=== PATIENT | male | born 1950 | race Caucasian/White ===

== ENCOUNTER 2016-06-20 05:49 | Day surgery (SDC) | payer MEDICARE, OTHER ==
[~2016-06-20] VITALS: Ht 182.9 cm; Wt 74.1 kg
[2016-06-20] VITALS (9 sets, daily range): BP systolic 127–161; BP diastolic 70–85; PULSE 57–81; RESP 12–21; O2SAT 97–99
[~2016-06-20 05:49] MED LIST: CALC-952 PO; CHOL5000 PO; CYAN50008 PO; CeFAZolin 2 Gm/50 mL D5W IV Premix IV SCH; FISH12002 PO; GLUC-180 PO; MULT-1018 PO; SAW/1TAB2 PO; TURMERIC ROOT; VITA400C66 PO; ZINC PLUS; biotin; ginkgo biloba; probiotic
[2016-06-20] MEDS ORDERED: Propofol 10,000 mCg/mL 20 mL Inj ONE (05:50)
[2016-06-20] MEDS ORDERED: MetoCLOpramide 5 mg/mL 2 mL Inj ONE (05:50)
[2016-06-20] MEDS ORDERED: Ondansetron 2 mg/mL 2 mL Inj ONE (05:50)
[2016-06-20] MEDS ORDERED: Dexamethasone 4 mg/mL Inj ONE (05:50)
[2016-06-20] MEDS: Lactated Ringer's 1,000 ML IV SCH ×2 (05:57→07:27)
[2016-06-20] MEDS ORDERED: CeFAZolin Inj 2 gm / 50mL D5W IV ONE (06:01)
--- NOTE | 2016-06-20 07:17 | PCM.HPANE ---
Patient Data Surgeon Admitting Provider: Attending Provider:Warren Miller MD Primary Care Physician:Aguila Pickering MD Other Provider:Cristal Campuzano Anesthesia Reason for Visit Right Inguinal Hernia Ht/WT & BMI Height (Feet): 6 Height (Inches): 0.00 Weight (Kilograms): 74.1 Body Mass Index 22.00 Allergies Coded Allergies: codeine (Verified Allergy, Unknown, gi symptoms, 06/16/16) Past Anesthesia History Anesthesia History: Denies:: Abnormal Airway, Anesthesia Reactions, Difficult Intubation, Fam Anesthesia Reaction Diabetes History Hx Diabetes?: No Current Bedside Blood Glucose: 93 MRSA MRSA: No Medications Hypertension Medication: No Home Meds Incl Beta Hannah: No Reported Medications Vitamin E Acetate (Vitamin E)400 Unit [id number] Unit PO DAILY 06/16/16 Cholecalciferol (Vitamin D3) (Vitamin D3)5,000 Unit Capsule5,000 Unit PO DAILY 06/16/16 Cyanocobalamin (Vitamin B-12) (Vitamin B12)5,000 Mcg Tab.rapdis5,000 Mcg PO DAILY 06/16/16 [turmeric root] No Conflict CheckUnknown Dose DAILY 06/16/16 [ginkgo biloba] No Conflict CheckUnknown Dose DAILY 06/16/16 Saw/Vit E/Sod Paty/Lyc/Beta/Pyg (Prostate Health Caplet)1 Each Tablet1 Each PO DAILY 06/16/16 Fish Oil/Borage/Flax/Om3,6,9#1 ([place] 3-6-9 1,200 mg Softgel)1,200 Mg Capsule1, 200 Mg PO DAILY 06/16/16 Multivitamin (Multi Vitamin Daily)1 Each Tablet1 Each PO DAILY 30 Days Ref 0 06/16/16 Glucosamine/MSM/Chondroitin A (Glucosamine Chondroit MSM Tab)1 Each Tablet1 Each PO DAILY 06/16/16 Calcium Carbonate/Vitamin D3 (Calcium 500 mg Chewable Tablet)1 Each Tab.chew1 Each PO DAILY 06/16/16 [biotin] No Conflict Check5,000 Mcg DAILY 06/16/16 Discontinued Reported Medications [zinc plus] No Conflict CheckUnknown Dose DAILY 06/16/16 [probiotic] No Conflict CheckUnknown Dose DAILY 06/16/16 History HEENT History: Denies:: Abnormal Airway Cataracts Difficult Intubation Dysphagia Glaucoma Hearing Problem Sinus Problem TMJ Hx of Heart Problems?: Yes Cardiovascular History: Positive for:: Irregular Heartbeat (Inc RBBB/occ palpitations EKG unchanged 2003) Denies:: AICD Chest Pain Congestive Heart Failure Coronary Artery Disease Edema Heart Murmur Hypertension Pacemaker Peripheral Vascular Rheumatic Fever Thrombophlebitis Valvular Heart Disease Other Cardiac History: 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, could not capture arrythmia at times of visit Hx of Respiratory Problem?: No Respiratory History: Denies:: Asthma COPD Emphysema Oxygen Administration Pneumonia (as child) Tuberculosis Use of C-PAP Machine Use of Inhalers / NEBS Neurological History: Denies:: Alzheimer's Disease CVA Dementia Dizziness Headaches Multiple Sclerosis Parkinson's Disease Seizures TIA Hx of GI Problems?: Yes Gastrointestinal History: Denies:: Cirrhosis Diverticulitis Gall Bladder Disease Gastroesphageal Reflux Gastrointestinal Bleeding Heartburn Hepatitis Hiatal Hernia Liver Disease Other GI Pertinent History: right inguinal hernia current admission problem Hx of Problems?: No Genitourinary History: Denies:: Kidney Stones Urinary Tract Infection Male Hx: Positive for:: Testicular Surgery (hx of vas, and vasosostomy) Denies:: Prostate Problems Scrotal Mass Skin History: Denies:: History Skin Disorders? Pressure Ulcers Hx Musculoskeletal Problems?: Yes Musculoskeletal History: Positive for:: Back Injury (sees chiropractor regularly) Osteoarthritis (right hand) Denies:: Fibromyalgia Joint Replacement Musculoskeletal Trauma Myasthenia Gravis Rheumatoid Arthritis Systemic Lupus Hx of Psycho/Social Problems?: No Psycho Social History: Denies:: Anxiety Hx Depression Hx Surgeries?: Yes (vas, vasosostomy) Hx Any Other Health Problems?: Yes Other History: Positive for:: Cancer (SCC left cheek) Denies:: Thyroid Disease History Blood Transfusions: Positive for:: Accept Blood Products? Denies:: Blood Transfusions Hx Diabetes: NoBedside Blood Glucose: 93 Hx Alcohol Use: YesAlcoholic Drinks Per Day: 1-2 drinks weekHx Substance Use: NoHave You Smoked inLast 12 mo: No Stop/Bang Treated for Sleep Apnea?: No Do You Have a CPAP Machine?: No P-Blood Pressure: treated: No B- Body Mass Index > 35 kg/m2: No A- Age over 50: Yes N- Neck Large Circumference: No G- Gender Male: Yes SHARI Risk Assessment: Low Risk, <3 Yes Risk Assessment Category Category 1A: Patient has history of documented sleep apnea, and HAS NOT received any narcotic, sedative or anesthesia administration during this stay. Category 1B: Patient has history of documented sleep apnea, and HAS received any narcotic , sedative or anesthesia administration during this stay Category 2: Patient has SUSPECTED Obstructive Sleep Apnea, and HAS received any narcotic , sedative or anesthesia administration during this stay. Category 3: Patient has SUSPECTED Obstructive Sleep Apnea and HAS NOT received narcotic, sedative or anesthesia administration during this stay. Category 4: Outpatient in Procedural Areas with known sleep apnea or who screen positive for High Risk via the STOP/BANG questionnaire. Exam Exam Vital Signs Vital Signs Date Time Temp Pulse Resp B/P Pulse Ox O2 Delivery O2 Flow Rate FiO2 06/20/16 06:34 36.4 66 18 127/74 97 Room Air General Appearance: Oriented X3 HEENT/AIRWAY: MP 2 Lungs: Normal Air Movement Heart: Regular Rate/Rhythm Meds/Labs/Diagnostics Admission Meds Current Medications Lactated Ringer's (Lr) 1,000 ml @ 120 mls/hr Q8H20M IV Last administered on t 05:57; Start 06/20/16 at 05:00; Stop 06/20/16 at 13:19 Bedside Blood Glucose: 93 Plan Impression Patient chart reviewed, patient interviewed and anesthestic plan with risks, benefits, and alternatives discussed, and informed consent obtained. NPO Status: 730PM ASA Physical Status: ASA2 Mod Systemic Disease Anesthetic Plan: GA Bene/Risks/Altern/Consents: Yes HP Complete Prior to Induction: Yes Freddie Kidd MD Jun 20, 2016 07:17
[2016-06-20] MEDS ORDERED: Lactated Ringer's 500 ML IV PRN (07:43)
[2016-06-20] MEDS ORDERED: Lactated Ringer's 1,000 ML IV SCH (07:43)
[2016-06-20] MEDS ORDERED: Phenylephrine 10,000 mCg/mL Inj IVPUSH PRN (07:45)
[2016-06-20] MEDS ORDERED: fentaNYL-PF 50 mCg/mL 2 mL Inj IVPUSH PRN (07:45)
[2016-06-20] MEDS ORDERED: HYDROmorphone 1 mg/mL Inj IVPUSH PRN (07:45)
[2016-06-20] MEDS ORDERED: Ondansetron 2 mg/mL 2 mL Inj IVPUSH PRN (07:45)
[2016-06-20] MEDS ORDERED: Dexamethasone 4 mg/mL Inj IVPUSH PRN (07:45)
[2016-06-20] MEDS ORDERED: EPHEDrine Sulfate 50 mg/mL Inj IVPUSH PRN (07:45)
[2016-06-20] MEDS ORDERED: MetoCLOpramide 5 mg/mL 2 mL Inj IVPUSH PRN (07:45)
[2016-06-20] MEDS ORDERED: Labetalol 5 mg/mL 4 mL Inj IV PRN (07:45)
[2016-06-20] MEDS ORDERED: Bupivacaine-MPF 0.5% 30 mL Inj INJ ONE (07:51)
[2016-06-20] MEDS ORDERED: oxyCODONE-Acetamin 5-325 mg Tablet PO PRN (08:30)
--- NOTE | 2016-06-20 08:57 | OP ---
[address] [address] OPERATIVE REPORT PATIENT: BELKIS SEVERINO : 1950 MR#: [id number] ADMIT: 06/20/2016 JOB ID: [id number] DATE OF SURGERY: 06/20/2016 PREOPERATIVE DIAGNOSIS(ES): Symptomatic right inguinal hernia. POSTOPERATIVE DIAGNOSIS(ES): Symptomatic indirect right inguinal hernia. OPERATION: Repair of symptomatic indirect right inguinal hernia with Kugel patch. SURGEON: Warren Miller MD [facility] MANAGER: Richard Armenta PA-C INDICATIONS: A 65-year-old man who has a symptomatic right inguinal hernia, and after discussing options with the patient, it was elected to proceed with repair. FINDINGS: He had an indirect right inguinal hernia. No evidence of a direct or femoral hernia. DESCRIPTION OF PROCEDURE: At the beginning and end of the operation, SCOAP checklist was completed. An LMA anesthetic was induced. Using ChloraPrep, he was prepped and draped in usual fashion. He received local anesthesia with 0.5% plain bupivacaine. A right inguinal incision was designed and incised. The superficial epigastric vein was ligated with 3-0 chromic. The external oblique was exposed and opened in the direction of its fibers. The internal oblique was opened in the direction of its fibers, as was the transversus abdominis. The transversalis fascia was opened vertically. The peritoneum was identified and reflected posteriorly. The deep epigastric artery and vein were identified and reflected anteriorly. The cord structures were identified, and the indirect sac was dissected off of the cord using blunt dissection and cautery. It was dissected well beyond the separation of the vas deferens from the gonadal vessels. The preperitoneal space was then bluntly developed and a small Kugel patch was positioned in it. It was secured to the transversus abdominis with interrupted 2-0 PDS. The internal oblique was closed with running 2-0 PDS. The external oblique and Troy's fascia with running 3-0 Vicryl. The ilioinguinal nerve was identified and sharply divided as it exited the internal oblique. The skin was closed subcuticular 4-0 Vicryl. Steri-Strips and sterile dressings were applied. The estimated blood loss was less than 10 cc. There are no apparent complications. The final sponge, needle, and instrument counts were announced as correct, and he was returned to the recovery room in stable condition. Critical assistance was provided by Richard Armenta PA-C.
--- NOTE | 2016-06-20 09:17 | PCM.ANEP1 ---
Post Anesthesia Phase 1 PACU Phase 1 Assessment Vital Signs Vital Signs Date Time Temp Pulse Resp B/P Pulse Ox O2 Delivery O2 Flow Rate FiO2 06/20/16 09:07 71 12 143/75 99 Room Air 06/20/16 09:01 36.4 71 14 142/70 99 Room Air 06/20/16 08:55 36.8 80 20 161/85 98 Room Air 06/20/16 08:50 81 21 153/82 97 Room Air 06/20/16 08:45 66 15 157/79 99 Simple Mask 8 06/20/16 08:40 57 12 159/77 99 Simple Mask 8 06/20/16 08:37 36.7 59 12 158/81 99 Simple Mask 8 06/20/16 06:34 36.4 66 18 127/74 97 Room Air Anesthetic Administered: GA Level of Alertness: Awake, talking Pain: No Nausea or Vomiting: No Oxygen Delivery: Room Air Lungs: Normal Air Movement Freddie Kidd MD Jun 20, 2016 09:17
--- NOTE | 2016-06-20 09:18 | PCM.ANEP2 ---
Post Anesthesia Evaluation ASA/CMS Post Anesthesia VS in Patient's Normal Range?: Yes Resp Stable; Airway Patent?: Yes CV Function & Hydration Stable: Yes Mental Status Recovered?: Yes Pain control Satisfactory?: Yes N/V Control Satisfactory?: Yes Freddie Kidd MD Jun 20, 2016 09:18
== END 2016-06-20 23:59 | disposition home or self-care (01) ==
LOC: SAS 05:49
PROVIDERS: ATTEND Surgery
DX: K40.90 Unilateral inguinal hernia, without obstruction or gangrene, not specified as recurrent (principal); Z87.891 Personal history of nicotine dependence
CPT/HCPCS: 49505; C1781; J0690; J1100; J2405; J2765; J7120